=== PATIENT | female | born 1980 | race Caucasian/White ===

== ENCOUNTER 2019-12-13 10:43 | Emergency (ER) | payer BC, MEDICAID ==
[~2019-12-13] VITALS: Ht 167.6 cm; Wt 83.9 kg
[2019-12-13 14:13] VITALS: BP 111/48
[2019-12-13] MEDS ORDERED: hydrOXYzine 25 MG TAB or CAP PO ONE (14:30)
== END 2019-12-13 14:56 | disposition home or self-care (01) ==
LOC: ER 10:43
DX: S06.0X0A Concussion without loss of consciousness, initial encounter (principal); F41.9 Anxiety disorder, unspecified; F17.210 Nicotine dependence, cigarettes, uncomplicated; R42 Dizziness and giddiness; Y04.2XXA Assault by strike against or bumped into by another person, initial encounter; Y93.89 Activity, other specified; Y92.89 Other specified places as the place of occurrence of the external cause; Y99.8 Other external cause status
CPT/HCPCS: 70450